=== PATIENT | female | born 1975 | race Caucasian/White ===

== ENCOUNTER 2021-09-19 11:00 | Inpatient (IN) | payer OTHER ==
[2021-09-19] VITALS (16 sets, daily range): BP systolic 107–161; BP diastolic 56–85
[~2021-09-19] VITALS: Ht 170.2 cm; Wt 96.0 kg
[2021-09-19 11:41] LABS: CLARITY,URINE CLOUDY (Clear); COLOR,URINE YELLOW (Yellow); GLUCOSE, URINE NEGATIVE (Neg); KETONES,URINE NEGATIVE (Neg); LEUKOCYTE ESTERASE ,URINE NEGATIVE (Neg); NITRITES, URINE NEGATIVE (Neg); OCCULT BLOOD,URINE LARGE (Neg); PROTEIN,URINE NEGATIVE (Neg); UROBILINOGEN,URINE 0.2 E.U/dL (0.2-1.0)
[2021-09-19 11:42] LABS: UA COLLECTION TYPE CLN CATCH MIDSTREAM
[2021-09-19 11:43] LABS: BASOPHILS % (AUTO) 0.3 % (0-1); EOSINOPHILS # (AUTO) 0.1 X10'3 (0-0.9); HEMATOCRIT 36.6 % (35.0-45.0); HEMOGLOBIN 12.6 g/dl (12.0-16.0); LYMPHOCYTES # (AUTO) 1.6 X10'3 (1.1-4.8); LYMPHOCYTES % (AUTO) 21.9 % (21-51); MEAN CORPUSCULAR HEMOGLOBIN 28.7 PG (27.0-31.0); MEAN CORPUSCULAR HGB CONC 34.3 g/dL (33.0-36.5); MEAN CORPUSCULAR VOLUME 83.7 FL (78-98); MEAN PLATELET VOLUME 6.6 FL (7.4-10.4); MONOCYTES # (AUTO) 0.5 X10'3 (0-0.9); MONOCYTES % (AUTO) 7.7 % (2-12); NEUTROPHILS # (AUTO) 4.8 X10'3 (1.8-7.7); NEUTROPHILS % (AUTO) 68.1 % (42-75); PLATELET COUNT 355 X10'3 (140-440); RED BLOOD COUNT 4.37 X10'6 (4.20-5.60); RED CELL DISTRIBUTION WIDTH 15.8 % (11.5-14.5); WHITE BLOOD COUNT 7.1 X10'3 (4.5-11.0)
[2021-09-19 11:45] LABS: URINE HCG NEGATIVE (NEG)
[2021-09-19 11:55] LABS: ALANINE AMINOTRANSFERASE 21 U/L (12-78); ALBUMIN 3.3 G/DL (3.4-5.0); ALBUMIN/GLOBULIN RATIO 0.8 (1.1-1.5); ALKALINE PHOSPHATASE 86 IU/L (46-116); ANION GAP 11 (8-16); ASPARTATE AMINO TRANSFERASE 17 U/L (10-37); BILIRUBIN,TOTAL 0.5 MG/DL (0.1-1.0); BLOOD UREA NITROGEN 10 MG/DL (7-18); BUN/CREATININE RATIO 12.7 (6.6-38.0); CALCIUM 8.5 MG/DL (8.5-10.1); CHLORIDE 105 MMOL/L (99-107); CREATININE 0.79 MG/DL (0.40-0.90); GLUCOSE 108 MG/DL (70-104); LIPASE 92 U/L (73-393); POTASSIUM 3.5 MMOL/L (3.5-5.1); SODIUM 143 MMOL/L (135-145); TOTAL CARBON DIOXIDE 26.8 MMOL/L (24-32); TOTAL PROTEIN 7.2 G/DL (6.4-8.2); eGFR 79 ML/MIN
[2021-09-19 12:00] LABS: MUCUS STRANDS FEW /LPF (Neg); SQUAMOUS EPITHELIAL CELL,UR MANY /LPF (FEW)
[2021-09-19 12:01] LABS: RBC,URINE 20-50 /HPF (0-2)
[2021-09-19 12:02] LABS: BACTERIA,URINE FEW /HPF (Neg); WBC,URINE 0-4 /HPF (0-4)
[2021-09-19] MEDS ORDERED: normal saline 1000ML IV soln IVB ONE (12:20)
[2021-09-19] MEDS ORDERED: morphine 4 MG/ML inj SYRINge IV ONE (12:20)
[2021-09-19] MEDS ORDERED: ondansetron/PF 4mg/2ml inj IV ONE (12:20)
[2021-09-19] MEDS ORDERED: piperacillin/tazo 4.5gm/100ml 100 ML IV ONE (14:38)
[2021-09-19] MEDS ORDERED: ondansetron/PF 4mg/2ml inj IV PRN ×2 (15:25→17:40)
[2021-09-19] MEDS ORDERED: magnesium hydroxide 30ml (MOM) UD suspension PO PRN (15:25)
[2021-09-19] MEDS ORDERED: mag hydrox/Alum hydrox/simeth 30ml oral suspension PO PRN (15:25)
[2021-09-19] MEDS ORDERED: HYDROcodone/acetaminophen 10/325mg tab PO PRN (15:25)
[2021-09-19] MEDS ORDERED: HYDROcodone/acetaminophen 5mg/325mg tablet PO PRN (15:25)
[2021-09-19] MEDS ORDERED: acetaminophen 325mg tablet PO PRN ×2 (15:25)
[2021-09-19] MEDS ORDERED: morphine 2 MG/ML inj. syringe IV PRN ×2 (15:25→17:40)
[2021-09-19] MEDS: dextrose 5%-1/2 normal saline 1,000 ML IV SCH ×2 (15:46→20:27)
[2021-09-19] MEDS: metroNIDAZOLE-Flagyl 500mg/NS 100 ML IV SCH ×2 (16:00→23:32)
--- NOTE | 2021-09-19 16:25 | NUR ---
Received report from ED RNAlon.
[2021-09-19] MEDS ORDERED: NO HOME MEDS (16:39)
[2021-09-19] MEDS: morphine 2 MG/ML inj. syringe IV PRN (17:13)
--- NOTE | 2021-09-19 17:30 | NUR ---
BG=[id number]
[2021-09-19] MEDS ORDERED: famotidine/PF 10 mg/ml inj IV ONE (17:36)
[2021-09-19] MEDS ORDERED: sevoflurane 250ml liquid IH ONE (17:38)
[2021-09-19] MEDS ORDERED: labetalol 20mg/4ml (5mg/ml) syringe IV PRN (17:40)
[2021-09-19] MEDS ORDERED: acetaminophen 1,000mg/100ml IV 100 ML IV PRN (17:40)
[2021-09-19] MEDS ORDERED: proCHLORperazine 10 MG/2 ml inj IV PRN (17:40)
[2021-09-19] MEDS ORDERED: morphine 4 MG/ML inj SYRINge IV PRN (17:40)
[2021-09-19] MEDS ORDERED: meperidine/PF 25mg/ml syringe IV PRN ×3 (17:40)
[2021-09-19] MEDS ORDERED: hydrALAZINE 20mg/ml inj. IV PRN (17:40)
[2021-09-19] MEDS ORDERED: ketorolac trometh. 30mg/ml inj. IV ONE (17:40)
[2021-09-19] MEDS ORDERED: ringers solution, lacted 1,000 ML IV SCH (17:40)
[2021-09-19] MEDS ORDERED: midazolam 1 mg/ML 2ml injection ONE (17:45)
[2021-09-19] MEDS ORDERED: fentaNYL /PF 50mcg/ml 5ml ampule ONE (17:45)
[2021-09-19 18:08] LABS: APTT 35 SECONDS (22-32)
[2021-09-19] MEDS ORDERED: LIDOcaine 2% (20mg/ml) 5ml vial ONE (18:08)
[2021-09-19] MEDS ORDERED: rocuronium 10mg/ml inj IV ONE (18:08)
[2021-09-19] MEDS ORDERED: propofol inj 20 ML IV ONE (18:08)
[2021-09-19] MEDS ORDERED: ondansetron/PF 4mg/2ml inj ONE (18:09)
[2021-09-19] MEDS ORDERED: dexamethasone sod phosphate 4mg/ml inj. ONE (18:09)
[2021-09-19] MEDS ORDERED: BUPIVAcaine 0.5% inj/PF 30 ML ONE (18:09)
[2021-09-19] MEDS ORDERED: acetaminophen 1,000mg/100ml IV 100 ML IV ONE (18:15)
[2021-09-19] MEDS ORDERED: 0.9 % SODIUM CHLORIDE 10 ML VIAL ONE (18:20)
[2021-09-19] MEDS ORDERED: ePHEDrine 50MG/ML INJ. ONE (18:20)
--- NOTE | 2021-09-19 18:20 | NUR ---
Problems reprioritized. Patient report given, questions answered & plan of care reviewed with INDRA Romero.
[2021-09-19] MEDS ORDERED: neostigmine methylsulfate 1 MG/ML 10ml vial ONE (18:39)
[2021-09-19] MEDS ORDERED: glycopyrrolate 0.2mg/ml inj ONE (18:39)
--- NOTE | 2021-09-19 18:45 | NUR ---
Patient in room [facility]. I have received report from YUNIOR BURRELL and had the opportunity to ask questions and assume patient care.
--- NOTE | 2021-09-19 18:45 | NUR ---
Received from OR via BED, accompanied by Anesthesiologist CHANTE and report given by Anesthesiolgist. PT AWAKE, QUITE TALKATIVE. OXYGENATING WELL ON 10 LPM O2 VIA MASK, NO RESP DISTRESS NOTED. DENIES NAUSEA, C/O MILD INCISIONAL PAIN, 3/10. WILL MEDICATE NEEDED, SEE EMAR. 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 NO DRAINAGE. NO WHITAKER, SCDS ON. VSS.
--- NOTE | 2021-09-19 19:26 | NUR ---
RECEIVED REPORT FROM ZACARIAS BURRELL IN PACU AND WILL ASSUME CARE WHEN PATIENT ARRIVES.
--- NOTE | 2021-09-19 19:55 | NUR ---
Report called to receiving nurse. Transferred via BED Belongings WITH SPOUSE. PT WAS GIVEN IV TORADOL FOR INCISIONAL PAIN. MEDICATED FOR NAUSEA WITH ZOFRAN AFTER PO WATER INTAKE. VSS. TRANSFERRED BACK TO 3 SURG IN STABLE CONDITION. Special Issues communicated to receiving nurse.
[2021-09-19] MEDS: docusate sod 100mg capsule PO SCH (20:00)
--- NOTE | 2021-09-19 20:14 | NUR ---
PATIENT IN THE ROOM RESTING AND DENIES HAVING ANY DISCOMFORT.
[2021-09-20 00:35] VITALS: BP 106/60
[2021-09-20 00:41] VITALS: BP 112/65
[2021-09-20] MEDS: morphine 2 MG/ML inj. syringe IV PRN ×2 (03:48→07:52)
[2021-09-20 04:00] VITALS: BP 111/65
--- NOTE | 2021-09-20 06:03 | NUR ---
Student documentation: I have reviewed and agree with all interventions, assessments performed and documented by SETH SMITH.
--- NOTE | 2021-09-20 06:04 | NUR ---
Patient report given, questions answered & plan of care reviewed with Sanam BURRELL.
--- NOTE | 2021-09-20 06:04 | NUR ---
Student Medication Administration: For this medication-pass time frame, all medication were reviewed, dispensed, administered and documented per hospital policy by SETH SMITH.
--- NOTE | 2021-09-20 06:15 | NUR ---
Patient in room [facility]. I have received report from INDRA Romero and had the opportunity to ask questions and assume patient care.
--- NOTE | 2021-09-20 06:23 | NUR ---
Problems reprioritized. Patient report given, questions answered & plan of care reviewed with YUNIOR RN.
[2021-09-20 06:30] VITALS: BP 109/64
[2021-09-20 06:31] LABS: BASOPHILS % (AUTO) 0 % (0-1); EOSINOPHILS % (AUTO) 0 % (0-6); HEMOGLOBIN 12.4 g/dl (12.0-16.0); LYMPHOCYTES # (AUTO) 0.5 X10'3 (1.1-4.8); LYMPHOCYTES % (AUTO) 5.3 % (21-51); MEAN CORPUSCULAR HEMOGLOBIN 28.9 PG (27.0-31.0); MEAN CORPUSCULAR HGB CONC 34.6 g/dL (33.0-36.5); MEAN CORPUSCULAR VOLUME 83.6 FL (78-98); MEAN PLATELET VOLUME 6.7 FL (7.4-10.4); MONOCYTES # (AUTO) 0.2 X10'3 (0-0.9); MONOCYTES % (AUTO) 2.2 % (2-12); NEUTROPHILS # (AUTO) 8.3 X10'3 (1.8-7.7); NEUTROPHILS % (AUTO) 92.5 % (42-75); PLATELET COUNT 363 X10'3 (140-440); RED BLOOD COUNT 4.31 X10'6 (4.20-5.60); RED CELL DISTRIBUTION WIDTH 15.7 % (11.5-14.5)
[2021-09-20 06:49] LABS: ALBUMIN 3.2 G/DL (3.4-5.0); ANION GAP 12 (8-16); BLOOD UREA NITROGEN 5 MG/DL (7-18); CALCIUM 8.2 MG/DL (8.5-10.1); CHLORIDE 106 MMOL/L (99-107); CREATININE 0.84 MG/DL (0.40-0.90); GLUCOSE 171 MG/DL (70-104); POTASSIUM 3.8 MMOL/L (3.5-5.1); SODIUM 141 MMOL/L (135-145); TOTAL CARBON DIOXIDE 22.9 MMOL/L (24-32); eGFR 73 ML/MIN
[2021-09-20] MEDS ORDERED: benzocaine/menthol oral lozeng 1 EACH BOX MM PRN (06:50)
[2021-09-20] MEDS: metroNIDAZOLE-Flagyl 500mg/NS 100 ML IV SCH (07:39)
[2021-09-20] MEDS: docusate sod 100mg capsule PO SCH (07:39)
[2021-09-20] MEDS: dextrose 5%-1/2 normal saline 1,000 ML IV SCH (07:40)
[2021-09-20] MEDS ORDERED: levoFLOXACIN-Levaquin 500mg/D5 100 ML IV SCH (08:00)
[2021-09-20] MEDS ORDERED: HYDR-3965 PO (09:57)
--- NOTE | 2021-09-20 10:50 | NUR ---
DC inst provided to pt & pt's . IV DC'd, tip intact. All belongings sent w/pt. WC to vehicle.
== END 2021-09-20 10:51 | disposition home or self-care (01) | DRG 338 ==
LOC: ER 11:01 → ED HOLD 15:27 → EDBEDREQ 16:03 → SUR 3N 16:43
PROVIDERS: ADMIT Internal Medicine; ATTEND Internal Medicine
PROC: 0DTJ0ZZ Resection of Appendix, Open Approach (ICD-10-PCS; principal; 2021-09-19 17:43)
DX: K35.33 Acute appendicitis with perforation, localized peritonitis, and gangrene, with abscess (principal); K66.1 Hemoperitoneum; N83.11 Corpus luteum cyst of right ovary; J44.9 Chronic obstructive pulmonary disease, unspecified; Z20.822 Contact with and (suspected) exposure to COVID-19; K57.30 Diverticulosis of large intestine without perforation or abscess without bleeding; E66.9 Obesity, unspecified; Z68.33 Body mass index [BMI] 33.0-33.9, adult; Z88.1 Allergy status to other antibiotic agents
CPT/HCPCS: 36415; 71045; 74176; 76830; 76856; 80048; 80053; 81001; 81025; 82948; 83690; 84145; 85025; 85610; 85730; 87081; 87635; 93005; 93976; 96365; 96375; 99285; A4215; A4618; A7000; G0378; J0131; J1100; J1885; J1956; J2250; J2270; J2405; J2543; J2704; J2710; J3010; J3490; J7030; J7042; J7120; S0020

== ENCOUNTER 2024-09-18 23:51 | Emergency (ER) | payer OTHER ==
[~2024-09-18] VITALS: Ht 170.2 cm; Wt 100.0 kg
[2024-09-19 00:18] LABS: BASOPHILS # (AUTO) 0.1 X10'3 (0-0.2); BASOPHILS % (AUTO) 0.9 % (0-1); EOSINOPHILS # (AUTO) 0.2 X10'3 (0-0.9); EOSINOPHILS % (AUTO) 2.7 % (0-6); HEMATOCRIT 44.3 % (35.0-45.0); HEMOGLOBIN 15.5 g/dl (12.0-16.0); LYMPHOCYTES # (AUTO) 1.5 X10'3 (1.1-4.8); LYMPHOCYTES % (AUTO) 22.3 % (21-51); MEAN CORPUSCULAR HEMOGLOBIN 30.4 PG (27.0-31.0); MEAN CORPUSCULAR VOLUME 86.6 FL (78-98); MEAN PLATELET VOLUME 6.3 FL (7.4-10.4); MONOCYTES # (AUTO) 0.5 X10'3 (0-0.9); MONOCYTES % (AUTO) 6.7 % (2-12); NEUTROPHILS # (AUTO) 4.6 X10'3 (1.8-7.7); NEUTROPHILS % (AUTO) 67.4 % (42-75); PLATELET COUNT 321 X10'3 (140-440); RED BLOOD COUNT 5.12 X10'6 (4.20-5.60); RED CELL DISTRIBUTION WIDTH 14.6 % (11.5-14.5); WHITE BLOOD COUNT 6.9 X10'3 (4.5-11.0)
[2024-09-19 00:32] LABS: ALANINE AMINOTRANSFERASE 23 U/L (12-78); ALBUMIN 3.5 G/DL (3.4-5.0); ALBUMIN/GLOBULIN RATIO 0.8 (1.1-1.5); ALKALINE PHOSPHATASE 113 IU/L (46-116); ANION GAP 3 (8-16); ASPARTATE AMINO TRANSFERASE 15 U/L (10-37); BILIRUBIN,TOTAL 0.7 MG/DL (0.1-1.0); BLOOD UREA NITROGEN 10 MG/DL (7-18); BUN/CREATININE RATIO 9.2 (10.0-20.0); CALCIUM 8.7 MG/DL (8.5-10.1); CHLORIDE 103 MMOL/L (99-107); CREATININE 1.09 MG/DL (0.40-0.90); GLUCOSE 106 MG/DL (70-104); POTASSIUM 3.9 MMOL/L (3.5-5.1); SODIUM 137 MMOL/L (135-145); TOTAL CARBON DIOXIDE 30.8 MMOL/L (24-32); TOTAL PROTEIN 8.1 G/DL (6.4-8.2); eCRCL 61 ML/MIN; eGFR 54 ML/MIN
[2024-09-19 00:40] LABS: PRO BRAIN NATRIURETIC PEPTIDE 32 PG/ML (0-125)
[2024-09-19 06:11] VITALS: BP 160/80; PULSE 68; RESP 20; TEMP 98.6; O2SAT 99
== END 2024-09-19 06:11 | disposition home or self-care (01) ==
LOC: ER 23:51
DX: R07.89 Other chest pain (principal); Z88.1 Allergy status to other antibiotic agents
CPT/HCPCS: 36415; 71045; 80053; 83880; 84484; 85025; 93005; 99285